=== PATIENT | male | born 1930 | race Caucasian/White ===

== ENCOUNTER → 2016-09-20 | Outpatient (CLI) | payer MEDICARE, OTHER ==
[2016-09-20 08:35] LABS: ALANINE AMINOTRANSFERASE 18 U/L (21-72); ALBUMIN 3.6 g/dL (3.5-5.0); ALKALINE PHOSPHATASE 60 U/L (38-126); ASPARTATE AMINO TRANSFERASE 18 U/L (17-59); BILIRUBIN,TOTAL 0.7 mg/dL (0.2-1.3); BLOOD UREA NITROGEN 17 mg/dL (7-20); CALCIUM 9.4 mg/dL (8.4-10.2); CARBON DIOXIDE 28 mmol/L (22-30); CHOLESTEROL 200.96 mg/dL (0-200); CREATININE RESULT 1.21 mg/dL (0.52-1.25); Direct HDL 77 mg/dL (>40); GLUCOSE 104 mg/dL (75-110); TOTAL PROTEIN 6.4 g/dL (6.3-8.2); TRIGLYCERIDES 69 mg/dL (<150)
[2016-09-20 08:45] LABS: DIRECT LDL 106 mg/dL (<100)
[2016-09-20 08:59] LABS: CHLORIDE 119 mmol/L (98-107); SODIUM 139.8 mmol/L (137-145)
[2016-09-20 09:04] LABS: ANION GAP -7 (5-19)
== END ==
LOC: OD 07:15
PROVIDERS: ATTEND Internal Medicine Cardiovascular Disease
DX: I10 Essential (primary) hypertension (principal); E78.00 Pure hypercholesterolemia, unspecified; E87.5 Hyperkalemia
CPT/HCPCS: 36415; 80048; 80061; 80076

== ENCOUNTER → 2016-12-22 | Outpatient (CLI) | payer MEDICARE, OTHER ==
[2016-12-22 08:28] LABS: ALANINE AMINOTRANSFERASE 25 U/L (21-72); ALKALINE PHOSPHATASE 62 U/L (38-126); ASPARTATE AMINO TRANSFERASE 16 U/L (17-59); BILIRUBIN,DIRECT 0.2 mg/dL (0.0-0.4); BILIRUBIN,TOTAL 0.5 mg/dL (0.2-1.3); BLOOD UREA NITROGEN 14 mg/dL (7-20); CALCIUM 9.1 mg/dL (8.4-10.2); CHLORIDE 120 mmol/L (98-107); CREATININE RESULT 1.13 mg/dL (0.52-1.25); Direct HDL 71 mg/dL (>40); GLUCOSE 109 mg/dL (75-110); POTASSIUM 5.6 mmol/L (3.6-5.0); TOTAL PROTEIN 6.3 g/dL (6.3-8.2); TRIGLYCERIDES 64 mg/dL (<150)
[2016-12-22 08:39] LABS: DIRECT LDL 89 mg/dL (<100)
[2016-12-22 08:48] LABS: CARBON DIOXIDE 26 mmol/L (22-30); SODIUM 141.6 mmol/L (137-145)
[2016-12-22 08:51] LABS: ANION GAP -4 (5-19)
== END ==
LOC: OD 07:09
PROVIDERS: ATTEND Internal Medicine Cardiovascular Disease
DX: Z79.899 Other long term (current) drug therapy (principal)
CPT/HCPCS: 36415; 80048; 80061; 80076

== ENCOUNTER → 2017-01-31 | Outpatient (CLI) | payer MEDICARE, OTHER ==
[2017-01-31 08:42] LABS: BLOOD UREA NITROGEN 20 mg/dL (7-20); CARBON DIOXIDE 24 mmol/L (22-30); CHLORIDE 120 mmol/L (98-107); CREATININE RESULT 1.09 mg/dL (0.52-1.25)
[2017-01-31 08:43] LABS: CALCIUM 8.8 mg/dL (8.4-10.2); GLUCOSE 99 mg/dL (75-110)
[2017-01-31 08:45] LABS: SODIUM 139.5 mmol/L (137-145)
[2017-01-31 08:55] LABS: POTASSIUM 4.7 mmol/L (3.6-5.0)
[2017-01-31 08:56] LABS: ANION GAP -5 (5-19)
== END ==
LOC: OD 07:17
PROVIDERS: ATTEND Internal Medicine Cardiovascular Disease
DX: E87.5 Hyperkalemia (principal)
CPT/HCPCS: 36415; 80048

== ENCOUNTER → 2017-09-29 | Outpatient (CLI) | payer MEDICARE, OTHER ==
[2017-09-29 09:15] LABS: BLOOD UREA NITROGEN 13 mg/dL (7-20); CALCIUM 8.9 mg/dL (8.4-10.2); CHOLESTEROL 190.72 mg/dL (0-200); GLUCOSE 103 mg/dL (75-110); TRIGLYCERIDES 69 mg/dL (<150)
[2017-09-29 09:25] LABS: DIRECT LDL 117 mg/dL (<100)
[2017-09-29 09:37] LABS: CARBON DIOXIDE 28 mmol/L (22-30); CHLORIDE 124 mmol/L (98-107); POTASSIUM 5.3 mmol/L (3.6-5.0); SODIUM 141.4 mmol/L (137-145)
== END ==
LOC: OD 07:37
PROVIDERS: ATTEND Internal Medicine Cardiovascular Disease
DX: E78.00 Pure hypercholesterolemia, unspecified (principal); I10 Essential (primary) hypertension; E87.5 Hyperkalemia
CPT/HCPCS: 36415; 80048; 80061

== ENCOUNTER → 2017-11-09 | Outpatient (CLI) | payer MEDICARE, OTHER ==
[2017-11-09 08:01] LABS: BLOOD UREA NITROGEN 17 mg/dL (7-20); CALCIUM 9.2 mg/dL (8.4-10.2); CARBON DIOXIDE 24 mmol/L (22-30); CHLORIDE 123 mmol/L (98-107); CHOLESTEROL 181.43 mg/dL (0-200); GLUCOSE 115 mg/dL (75-110); POTASSIUM 5.2 mmol/L (3.6-5.0); SODIUM 142.7 mmol/L (137-145); TRIGLYCERIDES 63 mg/dL (<150)
[2017-11-09 08:12] LABS: DIRECT LDL 97 mg/dL (<100)
== END ==
LOC: OD 07:14
PROVIDERS: ATTEND Internal Medicine Cardiovascular Disease
DX: E87.5 Hyperkalemia (principal); E78.00 Pure hypercholesterolemia, unspecified
CPT/HCPCS: 36415; 80048; 80061

== ENCOUNTER → 2018-02-16 | Outpatient (CLI) | payer MEDICARE, OTHER ==
[2018-02-16 08:45] LABS: BLOOD UREA NITROGEN 14 mg/dL (7-20); CALCIUM 8.9 mg/dL (8.4-10.2); GLUCOSE 100 mg/dL (75-110); POTASSIUM 4.5 mmol/L (3.6-5.0)
[2018-02-16 09:06] LABS: CARBON DIOXIDE 27 mmol/L (22-30); CHLORIDE 122 mmol/L (98-107); SODIUM 144.4 mmol/L (137-145)
[2018-02-16 09:13] LABS: ANION GAP -5 (5-19)
== END ==
LOC: OD 07:18
PROVIDERS: ATTEND Internal Medicine Cardiovascular Disease
DX: E87.5 Hyperkalemia (principal)
CPT/HCPCS: 36415; 80048

== ENCOUNTER → 2018-05-18 | Outpatient (CLI) | payer MEDICARE, OTHER ==
[2018-05-18 09:39] LABS: BLOOD UREA NITROGEN 14 mg/dL (7-20); CALCIUM 9.1 mg/dL (8.4-10.2); CARBON DIOXIDE 22 mmol/L (22-30); CHLORIDE 124 mmol/L (98-107); GLUCOSE 104 mg/dL (75-110); POTASSIUM 5.1 mmol/L (3.6-5.0)
[2018-05-18 09:43] LABS: ANION GAP -6 (5-19)
== END ==
LOC: OD 07:30
PROVIDERS: ATTEND Internal Medicine Cardiovascular Disease
DX: E87.5 Hyperkalemia (principal)
CPT/HCPCS: 36415; 80048

== ENCOUNTER → 2018-07-13 | Outpatient (CLI) | payer MEDICARE, OTHER ==
[2018-07-13 07:28] LABS: HEMATOCRIT 38.5 % (37.9-51.0); HEMOGLOBIN 12.7 g/dL (13.5-17.0); MEAN CORPUSCULAR HEMOGLOBIN 30.5 pg (27.0-33.4); MEAN CORPUSCULAR VOLUME 92 fl (80-97); PLATELET COUNT 225 10^3/uL (150-450); RED BLOOD COUNT 4.16 10^6/uL (4.35-5.55); RED CELL DISTRIBUTION WIDTH 13.5 % (11.5-14.0); WHITE BLOOD COUNT 12.9 10^3/uL (4.0-10.5)
[2018-07-13 07:48] LABS: ALANINE AMINOTRANSFERASE 16 U/L (21-72); ALBUMIN 4.2 g/dL (3.5-5.0); ALKALINE PHOSPHATASE 86 U/L (38-126); ASPARTATE AMINO TRANSFERASE 18 U/L (17-59); BILIRUBIN,DIRECT 0.2 mg/dL (0.0-0.4); BILIRUBIN,TOTAL 0.4 mg/dL (0.2-1.3); BLOOD UREA NITROGEN 15 mg/dL (7-20); CALCIUM 9.1 mg/dL (8.4-10.2); CHLORIDE 123 mmol/L (98-107); CHOLESTEROL 173.91 mg/dL (0-200); GLUCOSE 111 mg/dL (75-110); POTASSIUM 4.9 mmol/L (3.6-5.0); TOTAL PROTEIN 6.4 g/dL (6.3-8.2); TRIGLYCERIDES 54 mg/dL (<150)
[2018-07-13 07:59] LABS: DIRECT LDL 99 mg/dL (<100)
[2018-07-13 08:40] LABS: CARBON DIOXIDE 27 mmol/L (22-30); SODIUM 142.8 mmol/L (137-145)
[2018-07-13 08:42] LABS: ANION GAP -7 (5-19)
== END ==
LOC: LAB 07:06
PROVIDERS: ATTEND Physician Assistant
DX: E78.00 Pure hypercholesterolemia, unspecified (principal); I10 Essential (primary) hypertension; Z79.899 Other long term (current) drug therapy
CPT/HCPCS: 36415; 80048; 80061; 80076; 85027

== ENCOUNTER → 2018-09-07 | Outpatient (CLI) | payer MEDICARE, OTHER ==
[2018-09-07 08:06] LABS: ERYTHROCYTE SEDIMENTATION RATE 24 mm/hr (0-20)
[2018-09-07 08:26] LABS: HEMATOCRIT 34.2 % (37.9-51.0); HEMOGLOBIN 11.2 g/dL (13.5-17.0); MEAN CORPUSCULAR HEMOGLOBIN 30.3 pg (27.0-33.4); MEAN CORPUSCULAR HGB CONC 32.8 g/dL (32.0-36.0); MEAN CORPUSCULAR VOLUME 92 fl (80-97); PLATELET COUNT 252 10^3/uL (150-450); RED BLOOD COUNT 3.71 10^6/uL (4.35-5.55); RED CELL DISTRIBUTION WIDTH 13.6 % (11.5-14.0); WHITE BLOOD COUNT 14.1 10^3/uL (4.0-10.5)
== END ==
LOC: LAB 07:11
PROVIDERS: ATTEND Internal Medicine Cardiovascular Disease
DX: D72.9 Disorder of white blood cells, unspecified (principal); Z79.899 Other long term (current) drug therapy
CPT/HCPCS: 36415; 85027; 85652

== ENCOUNTER → 2019-05-31 | Outpatient (CLI) | payer MEDICARE, OTHER ==
[2019-05-31 07:28] LABS: MEAN CORPUSCULAR HEMOGLOBIN 30.5 pg (27.0-33.4); MEAN CORPUSCULAR HGB CONC 32.5 g/dL (32.0-36.0); MEAN CORPUSCULAR VOLUME 94 fl (80-97); PLATELET COUNT 226 10^3/uL (150-450); RED BLOOD COUNT 3.94 10^6/uL (4.35-5.55); RED CELL DISTRIBUTION WIDTH 13.5 % (11.5-14.0); WHITE BLOOD COUNT 13.7 10^3/uL (4.0-10.5)
[2019-05-31 07:45] LABS: ALBUMIN 4.2 g/dL (3.5-5.0); ALKALINE PHOSPHATASE 75 U/L (38-126); ASPARTATE AMINO TRANSFERASE 29 U/L (17-59); BILIRUBIN,DIRECT 0.2 mg/dL (0.0-0.4); BILIRUBIN,TOTAL 0.7 mg/dL (0.2-1.3); BLOOD UREA NITROGEN 17 mg/dL (7-20); CARBON DIOXIDE 24 mmol/L (22-30); CHOLESTEROL 172.89 mg/dL (0-200); GLUCOSE 101 mg/dL (75-110); TOTAL PROTEIN 6.7 g/dL (6.3-8.2); TRIGLYCERIDES 67 mg/dL (<150)
[2019-05-31 07:56] LABS: DIRECT LDL 106 mg/dL (<100)
[2019-05-31 08:08] LABS: CHLORIDE 123 mmol/L (98-107); POTASSIUM 4.8 mmol/L (3.6-5.0)
[2019-05-31 08:14] LABS: ANION GAP -8 (5-19)
== END ==
LOC: LAB 06:53
PROVIDERS: ATTEND Internal Medicine Cardiovascular Disease
DX: D64.9 Anemia, unspecified (principal); I10 Essential (primary) hypertension; E78.00 Pure hypercholesterolemia, unspecified; Z79.899 Other long term (current) drug therapy
CPT/HCPCS: 36415; 80048; 80061; 80076; 85027

== ENCOUNTER → 2019-07-02 | Outpatient (CLI) | payer MEDICARE, OTHER ==
--- NOTE | 2019-07-02 13:26 | RADIOLOGY REPORT (SQ) ---
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 Images reviewed with lung, soft tissue and bone windows. Reconstructed coronal and sagittal MPR and MIP images reviewed. All images stored on PACS. All CT scanners at this facility use dose modulation, iterative reconstruction, and/or weight based d osing when appropriate to reduce radiation dose to as low as reasonably achievable (ALARA). [facility]: Dose Right [facility]: CareDose [facility]: Dose Right [facility]: Teradose 4D [facility]: [employer] CONTRAST TYPE AND DOSE: contrast/concentration: Isovue 350.00 mg/ml; Total Contrast Delivered: 80.0 ml; Total Saline Delivered: 55.0 ml RENAL FUNCTION: Creatinine 1.5 RADIATION DOSE: CT Rad equipment meets quality standard of care and radiation dose reduction techniq ues were employed. CTDIvol: 9.1 mGy. DLP: 381 mGy-cm. . LIMITATIONS: None. FINDINGS: LUNGS AND PLEURA: No opacities, nodules, masses. No pneumothorax. No effusions. HILAR AND MEDIASTINAL STRUCTURES: No identified masses or abnormal nodes. No anterior mediastinal ma sses or residual thymus is identified. HEART AND VASCULAR STRUCTURES: Ascending thoracic aorta 4.5 cm in greatest diameter. Correlate clini kimberli for aortic stenosis or insufficiency. Minimal aortic valve calcification. Mild coronary arter y calcification. Mild cardiomegaly. No pericardial effusion HARDWARE: None in the chest. UPPER ABDOMEN: Small hiatal hernia. THYROID AND OTHER SOFT TISSUES: No masses. No adenopathy. BONES: No significant finding. OTHER: No other significant finding. IMPRESSION: No anterior mediastinal mass worrisome for thymoma. Dilated ascending thoracic aorta, correlate clinically for aortic stenosis or insufficiency TECHNICAL DOCUMENTATION: JOB ID: [id number] Quality ID # [id number]: Final reports with documentation of one or more dose reduction techniques (e.g., Au tomated exposure control, adjustment of the mA and/or kV according to patient size, use of iterative reconstruction technique) 2010 [employer]- All Rights Reserved Reading location - IP/workstation name: [email or web address]
== END ==
LOC: RAD 12:23
PROVIDERS: ATTEND Internal Medicine Hematology & Oncology
DX: G70.00 Myasthenia gravis without (acute) exacerbation (principal); R53.1 Weakness; C91.10 Chronic lymphocytic leukemia of B-cell type not having achieved remission
CPT/HCPCS: 71260; 82565

== ENCOUNTER → 2020-01-22 | Outpatient (CLI) | payer MEDICARE, OTHER ==
[2020-01-22 08:52] LABS: BLOOD UREA NITROGEN 25 mg/dL (7-20); CALCIUM 8.8 mg/dL (8.4-10.2); CARBON DIOXIDE 23 mmol/L (22-30); CHLORIDE 115 mmol/L (98-107); GLUCOSE 99 mg/dL (75-110); POTASSIUM 4.6 mmol/L (3.6-5.0)
== END ==
LOC: OD 07:11
PROVIDERS: ATTEND Internal Medicine Cardiovascular Disease
DX: I10 Essential (primary) hypertension (principal); Z79.899 Other long term (current) drug therapy
CPT/HCPCS: 36415; 80048

== ENCOUNTER → 2020-05-12 | Outpatient (CLI) | payer MEDICARE, OTHER ==
[2020-05-12 09:23] LABS: CHOLESTEROL 141.02 mg/dL (0-200); TRIGLYCERIDES 61 mg/dL (<150)
[2020-05-12 09:25] LABS: BLOOD UREA NITROGEN 22 mg/dL (7-20); CALCIUM 8.6 mg/dL (8.4-10.2); GLUCOSE 99 mg/dL (75-110); POTASSIUM 4.9 mmol/L (3.6-5.0)
[2020-05-12 09:30] LABS: CARBON DIOXIDE 24 mmol/L (22-30); CHLORIDE 116 mmol/L (98-107)
[2020-05-12 09:35] LABS: ANION GAP -1 (5-19)
[2020-05-12 09:37] LABS: DIRECT LDL 86 mg/dL (<100)
== END ==
LOC: OD 07:15
PROVIDERS: ATTEND Internal Medicine Cardiovascular Disease
DX: I10 Essential (primary) hypertension (principal); E78.00 Pure hypercholesterolemia, unspecified; Z79.899 Other long term (current) drug therapy
CPT/HCPCS: 36415; 80048; 80061

== ENCOUNTER → 2020-08-04 | Outpatient (CLI) | payer MEDICARE, OTHER ==
[2020-08-04 08:45] LABS: BLOOD UREA NITROGEN 21 mg/dL (7-20); CALCIUM 8.5 mg/dL (8.4-10.2); GLUCOSE 99 mg/dL (75-110); POTASSIUM 4.7 mmol/L (3.6-5.0)
[2020-08-04 08:50] LABS: CARBON DIOXIDE 28 mmol/L (22-30); CHLORIDE 111 mmol/L (98-107)
[2020-08-04 09:04] LABS: ANION GAP 1 (5-19)
== END ==
LOC: OD 07:14
PROVIDERS: ATTEND Internal Medicine Cardiovascular Disease
DX: I10 Essential (primary) hypertension (principal); E87.5 Hyperkalemia; Z79.899 Other long term (current) drug therapy
CPT/HCPCS: 36415; 80048